=== PATIENT | female | born 1950 | race Caucasian/White ===

== ENCOUNTER 2016-10-31 05:03 | Emergency (ER) | payer OTHER, MEDICAID ==
[~2016-10-31] VITALS: Ht 160 cm; Wt 72.5 kg
[~2016-10-31 05:03] MED LIST: FLUO20CA22 PO; HUM10VIA9 SC; LEVO125T75 PO; SMV40T PO; [UNRECOGNIZED DRUG - CODE] PO; [UNRECOGNIZED DRUG - CODE] PO
[2016-10-31 05:11] VITALS: Ht 160 cm; Wt 72.5 kg
[2016-10-31] MEDS ORDERED: SOD CHLORIDE 0.9% 500 ML IV STA (05:16)
[2016-10-31 05:39] LABS: URINE BLOOD (Dip) POC Trace-intact (NEGATIVE)
[2016-10-31 05:43] LABS: ADD SCAN DIFF NO
[2016-10-31] MEDS ORDERED: ONDANSETRON 4 MG INJ IV STA (05:48)
[2016-10-31] MEDS ORDERED: morphine 4 MG/ML VIAL IV STA ×2 (05:48→07:29)
[2016-10-31 05:54] LABS: BASOPHILS % 0.5 % (0.0-2.0); EOSINOPHILS # 0.2 10^3/ul (0.0-0.5); EOSINOPHILS % 2.7 % (0.0-7.0); HEMATOCRIT 39.5 % (37.0-47.0); HEMOGLOBIN 12.9 g/dl (12.0-16.0); LYMPHOCYTES # 2.2 10^3/ul (0.8-2.9); LYMPHOCYTES % 26.6 % (15.0-51.0); MEAN CORPUSCULAR HEMOGLOBIN 27.8 pg (29.0-33.0); MEAN CORPUSCULAR HGB CONC 32.7 g/dl (32.0-37.0); MEAN CORPUSCULAR VOLUME 85.1 fl (82.0-101.0); MEAN PLATELET VOLUME 10.6 fl (7.4-10.4); MONOCYTE # 0.6 10^3/ul (0.3-0.9); NEUTROPHIL # 5.2 10^3/ul (1.6-7.5); NEUTROPHILS % 62.1 % (39.0-77.0); PLATELET COUNT 476 10^3/UL (140-415); RED BLOOD COUNT 4.64 10^6/ul (4.20-5.40); RED CELL DISTRIBUTION WIDTH 21.8 % (11.5-14.5); WHITE BLOOD COUNT 8.4 10^3/ul (4.8-10.8)
[2016-10-31 06:12] LABS: ADD UMIC YES; URINE BILIRUBIN (Dip) NEGATIVE (NEGATIVE); URINE BLOOD (Dip) NEGATIVE (NEGATIVE); URINE COLOR LT. YELLOW (YELLOW); URINE GLUCOSE (Dip) NEGATIVE (NEGATIVE); URINE KETONES (Dip) TRACE (NEGATIVE); URINE LEUKOCYTE ESTERASE (Dip) 1+ (NEGATIVE); URINE NITRITE (Dip) POSITIVE (NEGATIVE); URINE TOTAL PROTEIN (Dip) NEGATIVE (NEGATIVE); URINE UROBILINOGEN (Dip) 1.0 E.U./dL (0.1-1.0)
[2016-10-31 06:18] LABS: POTASSIUM 3.1 mmol/L (3.5-5.1)
[2016-10-31 06:20] LABS: CREATININE 0.58 mg/dl (0.44-1.00)
[2016-10-31 06:21] LABS: ALBUMIN/GLOBULIN RATIO 0.88; BILIRUBIN,INDIRECT 0.2 mg/dl (0-1.1); BILIRUBIN,TOTAL 0.2 mg/dl (0.2-1.3); CALCIUM 8.7 mg/dl (8.4-10.2); TOTAL PROTEIN 6.4 g/dl (6.1-8.1)
[2016-10-31 06:22] LABS: BACTERIA,URINE MANY; SQUAMOUS EPITHELIAL CELL,UR MODERATE; URINE RBCS 0-2 /HPF (0)
[2016-10-31] MEDS ORDERED: DICLOFENAC SODIUM 37.5 MG/ML VIAL IV ONE (06:31)
--- NOTE | 2016-10-31 06:55 | RADRPT ---
PROCEDURE: CT Abdomen and pelvis without contrast. CLINICAL INDICATION: Abdominal Pain TECHNIQUE: CT scan of the abdomen and pelvis without contrast was performed on a multidetector hig h-resolution CT scan. . Coronal and sagittal reformatted images were obtained from the axial [facility] e images. Standard CT scan of the abdomen pelvis without contrast protocols were performed. The total exam CTDI equals 20.01 mGy and the total exam DLP equals 1304.2 mGy-cm. One or more of the following dose reduction techniques were used: - Automated exposure control. - Adjustment of the mA and/or kV according to patient size. Use of iterative reconstruction technique. COMPARISON: CT abdomen pelvis 07/18/2011 FINDINGS: The kidneys remain normal in size without evidence of calcified renal calculi or hydronephrosis bila terally. No evidence of intra renal masses. The ureters are unremarkable. Urinary bladder is part ially collapsed but otherwise unremarkable. Again noted is a 3.5 cm uterine leiomyoma. No adnexal masses. Again noted is diverticulosis of the left colon but no CT evidence of diverticulitis. The colon is o therwise unremarkable. There is a tiny hiatal hernia. The stomach is otherwise unremarkable. The small bowel is unremarkable. Negative for intra-abdominal free air, free fluid, abscesses or lymphadenopathy. The liver spleen pancreas and adrenal glands are normal in size configuration without focal lesions. Status post previous cholecystectomy without biliary ductal dilation. Diffuse atherosclerotic vascular disease without aortic aneurysm. Slightly more prominent bibasilar ground-glass opacities consistent with atelectasis scarring and possible pneumonitis. Lung bases a re otherwise unremarkable. Interval development of a severe L1 compression fracture . The fracture appears chronic with exuberant hypertrophic changes along the anterior aspects of the T12-L2 verteb ral levels. There is 8 mm retropulsion with severe central spinal canal stenosis. Recommend clinic al correlation. Additional degenerative changes lower thoracic and lumbar spine without other fract ures. No evidence of osteoblastic/osteolytic lesions. IMPRESSION: 1. Correlation is made to the previous CT scan of the abdomen and pelvis 07/18/2011 and there is no w has severe L1 compression fracture with 8 mm retropulsion severe central spinal canal stenosis. B huong changes suggest that this is a chronic fracture. Recommend clinical correlation. 2. Left colonic diverticulosis without CT evidence of diverticulitis. 3. Tiny hiatal hernia. 4. No intra-abdominal free air fluid abscesses or lymphadenopathy. 5. Status post cholecystectomy without evidence of biliary ductal dilation. 6. Slightly more prominent bibasilar ground-glass opacities consistent with atelectasis and scarrin g with possible superimposed pneumonitis. Recommend clinical correlation. RPTAT:AAJJ Physician Liban Date Time Electronically viewed and signed by Filemon Lemus Physician on 10/31/2016 06:54 BM/
[2016-10-31] MEDS ORDERED: HYDR-906 PO (08:26)
[2016-10-31] MEDS ORDERED: CIPR500T4 PO (08:26)
[2016-10-31] MEDS ORDERED: NAPR-688 PO (08:26)
[2016-10-31] MEDS ORDERED: POLY17PO6 PO (08:26)
[2016-10-31] MEDS ORDERED: METH500T PO (08:26)
[2016-10-31 08:41] VITALS: BP 140/78; PULSE 79; RESP 24
[2016-10-31] MEDS ORDERED: POTASSIUM CHLORIDE (SR) 20 MEQ TAB PO STA (09:08)
--- NOTE | 2016-10-31 09:17 | ERD ---
ER Documentation Chief Complaint Date/Time DATE: 10/31/16 TIME: 09:01 Chief Complaint lower back pain, diarrhea, chills HPI This 65-year-old female presents emergency room for bilateral lower back pain as well as diarrhea and chills for one day. She has mild mid abdominal pain that does not radiate described is a crampy pain. She has had mild nausea but has not vomited today. Denies chest pain shortness of breath. Does have a history of a compression fracture at the beginning of the year. ROS All systems reviewed and are negative except as per history of present illness. Medications Home Meds Active Scripts Polyethylene Glycol* (Miralax*) 17 Gm Powd.pack, 17 GM PO DAILY for CONSTIPATION , #7 Prov:ALEXIS GARAY 10/31/16 Methocarbamol* (Robaxin*) 500 Mg Tab, 500 MG PO Q8 for MUSCLE SPASMS, #20 TAB Prov:ALEXIS GARAY 10/31/16 Naproxen* (Naproxen*) 500 Mg Tablet, 500 MG PO BID Y for PAIN, #14 TAB Prov:ALEXIS GARAY 10/31/16 Ciprofloxacin Hcl* (Ciprofloxacin Hcl*) 500 Mg Tablet, 500 MG PO BID for 14 Days , TAB Prov:ALEXIS GARAY 10/31/16 Hydrocodone/Acetaminophen (Thaxton 5-325 Tablet) 1 Each Tablet, 1 EACH PO Q6, #14 TAB Prov:ALEXIS GARAY DO 10/31/16 Reported Medications Hum Insulin Nph/Reg Insulin Hm (Novolin 70-30 100 Unit/Ml Vial) 100 Units/Ml Vial, UNITS SC BID 10/20/11 Hydrocodone Bit/Acetaminophen (Hydrocodone-Apap 7.5-325 Mg Tb) 1 Tab Tablet, 1 TAB PO TID 10/20/11 Levothyroxine Sodium* (Levothyroxine Sodium*) 125 Mcg Tablet, 125 MCG PO DAILY 10/20/11 Simvastatin (Simvastatin) 40 Mg Tablet, 40 MG PO DAILY 10/20/11 Fluoxetine Hcl* (Fluoxetine Hcl*) 20 Mg Capsule, 20 MG PO DAILY, 0 Refills 12/30/10 Glyburide, Micro/Metformin Hcl (Glyburide-Metformin 5-500 Mg) 1 Udtab Tablet, 1 TAB PO BID, 0 Refills 12/30/10 Allergies Allergies: Coded Allergies: aspirin (Verified Allergy, Severe, 10/20/11) codeine (Verified Allergy, Severe, 10/20/11) PMhx/Soc History of Surgery: Yes (GALLBLADDER, APPENDIX, C SECTION X 1, TUBAL LIGATION ) Anesthesia Reaction: No Hx Neurological Disorder: No Hx Respiratory Disorders: No Hx Cardiac Disorders: Yes (HTN, HIGH CHOLESTEROL ) Hx Psychiatric Problems: No Hx Miscellaneous Medical Probl: No Hx Alcohol Use: No Hx Substance Use: No Hx Tobacco Use: Yes (CIGARETTES 1/2 PPD) Smoking Status: Current every day smoker Physical Exam Vitals Vital Signs Date Time Temp Pulse Resp B/P Pulse Ox O2 Delivery O2 Flow Rate FiO2 10/31/16 08:41 79 24 140/78 99 Room Air 10/31/16 06:15 79 20 141/70 99 Room Air 10/31/16 05:11 97.2 98 19 141/100 98 Physical Exam Const: [] Mild distress Head: Atraumatic Eyes: Normal Conjunctiva ENT: Normal External Ears, Nose and Mouth. Neck: Full range of motion..~ No meningismus. Resp: Clear to auscultation bilaterally Cardio: Regular rate and rhythm, no murmurs Abd: Soft, mild superpubic tenderness without guarding or rebound, non distended. Normal bowel sounds Skin: No petechiae or rashes Back: No midline or flank tenderness, bilateral paraspinal lumbar muscle spasm Ext: No cyanosis, or edema, right leg cast. Distal pulses/capillary refill i. Neur: Awake and alert and oriented 3, no focal deficits Psych: Normal Mood and Affect Result Diagram: 10/31/16 0510/31/1620 Results 24 hrs Laboratory Tests Test 10/31/16 05:20 10/31/16 05:39 10/31/16 05:45 White Blood Count 8.410^3/ul Red Blood Count 4.6410^6/ul Hemoglobin 12.9g/dl Hematocrit 39.5% Mean Corpuscular Volume 85.1fl Mean Corpuscular Hemoglobin 27.8pg Mean Corpuscular Hemoglobin Concent 32.7g/dl Red Cell Distribution Width 21.8% Platelet Count 28969^3/UL Mean Platelet Volume 10.6fl Neutrophils % 62.1% Lymphocytes % 26.6% Monocytes % 7.0% Eosinophils % 2.7% Basophils % 0.5% Nucleated Red Blood Cells % 0.0/100WBC Neutrophils # 5.210^3/ul Lymphocytes # 2.210^3/ul Monocytes # 0.610^3/ul Eosinophils # 0.210^3/ul Basophils # 0.010^3/ul Nucleated Red Blood Cells # 0.010^3/ul Sodium Level 137mmol/L Potassium Level 3.1mmol/L Chloride Level 101mmol/L Carbon Dioxide Level 26mmol/L Anion Gap 13 Blood Urea Nitrogen 11mg/dl Creatinine 0.58mg/dl Glucose Level 90mg/dl Calcium Level 8.7mg/dl Total Bilirubin 0.2mg/dl Direct Bilirubin 0.00mg/dl Indirect Bilirubin 0.2mg/dl Aspartate Amino Transf (AST/SGOT) 45IU/L Alanine Aminotransferase (ALT/SGPT) 29IU/L Alkaline Phosphatase 282IU/L Total Protein 6.4g/dl Albumin 3.0g/dl Globulin 3.40g/dl Albumin/Globulin Ratio 0.88 Lipase 13U/L Bedside Urine pH (LAB) 7.0 Bedside Urine Protein (LAB) 1+ Bedside Urine Glucose (UA) Negative Bedside Urine Ketones (LAB) Trace Bedside Urine Blood Trace-intact Bedside Urine Nitrite (LAB) Positive Bedside Urine Leukocyte Esterase (L 1+ Urine Color LT. YELLOW Urine Clarity HAZY Urine pH 7.0 Urine Specific [place] 1.015 Urine Ketones TRACE Urine Nitrite POSITIVE Urine Bilirubin NEGATIVE Urine Urobilinogen 1.0 E.U./dL Urine Leukocyte Esterase 1+ Urine Microscopic RBC 0-2/HPF Urine Microscopic WBC 10-25/HPF Urine Squamous Epithelial Cells MODERATE Urine Bacteria MANY Urine Hemoglobin NEGATIVE Urine Glucose NEGATIVE% Urine Total Protein NEGATIVE Current Medications Medications (Trade) Dose Ordered Sig/Noemi Route PRN Reason Start Time Stop Time Status Last Admin Dose Admin Sodium Chloride (NS) 500 ml @ 500 mls/hr Q1H STAT IV 10/31/16 05:16 10/31/16 06:15 DC 10/31/16 05:27 Morphine Sulfate (morphine) 4 mg ONCE STAT IV 10/31/16 05:48 10/31/16 05:49 DC 10/31/16 06:15 Ondansetron HCl (Zofran Inj) 4 mg ONCE STAT IV 10/31/16 05:48 10/31/16 05:49 DC 10/31/16 06:15 Diclofenac Sodium (Dyloject) 37.5 mg ONCE ONCE IV 10/31/16 06:31 10/31/16 06:32 DC 10/31/16 06:51 Morphine Sulfate (morphine) 4 mg ONCE STAT IV 10/31/16 07:29 10/31/16 07:31 DC Procedures/MDM Patient with flank pain as well as back muscle spasm and urinary checked infection. We'll treat for pyelonephritis this patient was initially in some distress and pyelonephritis would be difficult to distinguish from a complicated urinary tract infection as the patient has a recent compression fracture that would cause flank pain. Her renal function is within normal limits. She was given 4 g of morphine as well as Zofran IV fluid for hydration and diclofenac. This made her much more comfortable. Is given a Kader for her low potassium. She has no unstable vital signs are elevated white blood cell count to indicate sepsis. Going to discharge her with Thaxton, Robaxin, naproxen for back pain. Jaye giving HER-2 weeks of ciprofloxacin for her back pain. Urine culture was obtained. Jaye giving her MiraLAX his constipation is likely with the back pain from the fracture as well as narcotic pain medication. Per my care follow-up in the next couple of days and return precautions given. CT abdomen and pelvis interpretation: No acute process., Old compression fracture, no free air, no obstruction, no abnormal fat stranding. Departure Diagnosis: Primary Impression: Pyelonephritis Additional Impressions: Back muscle spasm Hypokalemia Condition: Stable Patient Instructions: Fracture, Vertebral Compression, Muscle Spasm, Pyelonephritis, Female (Adult) Additional Instructions: Call your primary care doctor TOMORROW for an appointment during the next 1-2 days.See the doctor sooner or return here if your condition worsens before your appointment time. ALEXIS GARAY DO Oct 31, 2016 09:11
== END 2016-10-31 09:54 | disposition home or self-care (01) ==
LOC: E/R 05:03
DX: N12 Tubulo-interstitial nephritis, not specified as acute or chronic (principal); E87.6 Hypokalemia; M62.830 Muscle spasm of back
CPT/HCPCS: 74176; 80053; 81001; 83690; 85025; 87086; J2270; J2405; J7040; 36415; 81003; 96374; 96375; 96376; P9612